=== PATIENT | female | born 1980 | race African-American/Black ===

== ENCOUNTER 2020-05-03 00:11 | Emergency (ER) | payer SELFPAY ==
[~2020-05-03] VITALS: Ht 157.5 cm; Wt 50.0 kg
[2020-05-03 00:12] VITALS: BP 187/113
== END 2020-05-03 00:52 | disposition left against medical advice (07) ==
LOC: ER 00:26
DX: Z53.21 Procedure and treatment not carried out due to patient leaving prior to being seen by health care provider (principal)